=== PATIENT | male | born 1970 | race Two or more races ===

== ENCOUNTER 2022-10-04 21:36 | Observation (INO) | payer OTHER ==
[2022-10-04 23:12] LABS: PH,URINE 7.5 (5.0-8.0); URINE APPEARANCE CLOUDY; URINE BILIRUBIN NEGATIVE (NEGATIVE); URINE COLOR YELLOW; URINE GLUCOSE (UA) NEGATIVE (NEGATIVE); URINE KETONE NEGATIVE (NEGATIVE); URINE LEUK ESTERASE NEGATIVE (NEGATIVE); URINE NITRITE NEGATIVE (NEGATIVE); URINE PROTEIN NEGATIVE (NEGATIVE); URINE UROBILINOGEN 0.2 mg/dL (0.2-1.0)
[2022-10-04 23:13] LABS: HEMATOCRIT 33.6 % (35.4-49); HEMOGLOBIN 10.9 GM/dL (11.7-16.9); MCH 25.6 pg (25.7-33.7); MCHC 32.5 g/dl (32.0-35.9); MEAN CELL VOLUME 78.7 fl (80-96); MEAN PLT VOLUME 6.8 fl (7.5-11.1); PLATELET COUNT 206 10^3/uL (134-434); RBC 4.28 M/mm3 (4.00-5.60); RDW 16.4 % (11.9-15.9); WHITE BLOOD COUNT 5.5 K/mm3 (4.0-10.0)
[2022-10-04 23:31] LABS: CHLORIDE 114 mmol/L (98-107); POTASSIUM 4.5 mmol/L (3.5-5.1); SODIUM 144 mmol/L (136-145)
[2022-10-04 23:33] LABS: CALCIUM 8.5 mg/dL (8.5-10.1)
[2022-10-04 23:34] LABS: ALBUMIN 3.1 g/dl (3.4-5.0); ANION GAP 7 MMOL/L (8-16); BLOOD UREA NITROGEN 25.5 mg/dL (7-18); CO2 23 mmol/L (21-32); GLUCOSE,RANDOM 107 mg/dL (74-106)
[2022-10-04 23:37] LABS: CREATININE 0.8 mg/dL (0.55-1.3); SGOT/AST 25 U/L (15-37); SGPT/ALT 48 U/L (13-61)
[2022-10-04 23:38] LABS: BILIRUBIN,TOTAL 0.1 mg/dL (0.2-1)
[2022-10-04 23:39] LABS: TOT PROT 6.4 g/dl (6.4-8.2)
[2022-10-04 23:40] LABS: ALK PHOS 55 U/L (45-117); PHENCYCLIDINE,URINE NEGATIVE (NEGATIVE); URINE BARBITURATES NEGATIVE (NEGATIVE)
[2022-10-04 23:41] LABS: COCAINE, UR NEGATIVE (NEGATIVE); METHADONE, UR NEGATIVE (NEGATIVE); OPIATES, URI NEGATIVE (NEGATIVE)
[2022-10-04 23:45] LABS: URINE AMPHETAMINES NEGATIVE (NEGATIVE); URINE BENZODIAZEPINES NEGATIVE (NEGATIVE)
[2022-10-05] MEDS ORDERED: levETIRAcetam 500 MG/5 ML INJECTION VIAL IVPB ONE ×2 (00:16→00:27)
[2022-10-05] MEDS ORDERED: SODIUM CHLORIDE 1,000 ML IV STA (03:07)
[2022-10-05] MEDS ORDERED: SODIUM CHLORIDE 1,000 ML IV SCH (03:15)
[2022-10-05] MEDS: INSULIN (NOVOLOG) ASPART 100 UNITS/ML 10ML VIAL SQ SCH ×4 (06:46→22:33)
[2022-10-05 07:55] LABS: BASO % 0.4 % (0-2.0); EOS % 2.2 % (0-4.5); HEMATOCRIT 33.8 % (35.4-49); HEMOGLOBIN 10.8 GM/dL (11.7-16.9); LYMPH % 24.7 % (8-40); MCH 25.7 pg (25.7-33.7); MCHC 32.1 g/dl (32.0-35.9); MEAN CELL VOLUME 80.1 fl (80-96); MEAN PLT VOLUME 7.5 fl (7.5-11.1); NEUT % 64.7 % (42.8-82.8); PLATELET COUNT 214 10^3/uL (134-434); RBC 4.21 M/mm3 (4.00-5.60); RDW 16.4 % (11.9-15.9); RETICULOCYTES 1.49 % (0.5-1.5); WHITE BLOOD COUNT 5.3 K/mm3 (4.0-10.0)
[2022-10-05 08:11] LABS: POTASSIUM 4.5 mmol/L (3.5-5.1)
[2022-10-05 08:13] LABS: ALBUMIN 3.2 g/dl (3.4-5.0); CALCIUM 8.4 mg/dL (8.5-10.1); MAGNESIUM 1.8 mg/dL (1.8-2.4)
[2022-10-05 08:16] LABS: BLOOD UREA NITROGEN 18.3 mg/dL (7-18); CREATININE 0.7 mg/dL (0.55-1.3)
[2022-10-05 08:17] LABS: PHOSPHOROUS 3.2 mg/dL (2.5-4.9)
[2022-10-05 08:18] LABS: BILIRUBIN,TOTAL 0.2 mg/dL (0.2-1); TOT PROT 6.4 g/dl (6.4-8.2)
[2022-10-05] MEDS: ASPIRIN COATED 81 MG TABLET.EC PO SCH (09:44)
[2022-10-05] MEDS: ESCITALOPRAM OXALATE 20 MG TABLET PO SCH (09:45)
[2022-10-05] MEDS: DARUNAVIR/COB/EMTRI/TENOF (SYMTUZA) TABLET (NF) PO SCH (09:46)
[2022-10-05] MEDS: ENOXAPARIN NA (PORCINE) 40 MG/0.4 ML DISP.SYRIN SQ SCH ×2 (09:46→09:54)
[2022-10-05] MEDS ORDERED: levETIRAcetam 500 MG/5 ML INJECTION VIAL IVPB SCH (10:00)
[2022-10-05] MEDS ORDERED: PNEUMOC 20-VAL CONJ-DIP CRM/PF 0.5 ML SYRINGE IM ONE (10:00)
[2022-10-05] MEDS: D5-1/2NS+10 MEQ KCL - 10 MEQ/1,000 ML INFUS.BAG IV SCH ×2 (11:30→23:19)
[2022-10-05] MEDS: levETIRAcetam 500 MG TABLET (FP) PO SCH (22:32)
[2022-10-06 06:38] VITALS: RESP 18
[2022-10-06] MEDS: INSULIN (NOVOLOG) ASPART 100 UNITS/ML 10ML VIAL SQ SCH ×2 (07:53→11:18)
[2022-10-06 09:09] LABS: BASO % 0.5 % (0-2.0); EOS % 2.5 % (0-4.5); HEMATOCRIT 35.5 % (35.4-49); HEMOGLOBIN 11.3 GM/dL (11.7-16.9); LYMPH % 28.7 % (8-40); MCH 25.5 pg (25.7-33.7); MCHC 31.9 g/dl (32.0-35.9); MEAN CELL VOLUME 79.9 fl (80-96); MEAN PLT VOLUME 7.7 fl (7.5-11.1); MONO % 10.2 % (3.8-10.2); NEUT % 58.1 % (42.8-82.8); PLATELET COUNT 213 10^3/uL (134-434); RBC 4.44 M/mm3 (4.00-5.60); RDW 16.3 % (11.9-15.9); WHITE BLOOD COUNT 4.1 K/mm3 (4.0-10.0)
[2022-10-06 09:21] LABS: POTASSIUM 4.2 mmol/L (3.5-5.1)
[2022-10-06 09:24] LABS: ALBUMIN 3.3 g/dl (3.4-5.0); CALCIUM 8.8 mg/dL (8.5-10.1)
[2022-10-06 09:25] LABS: BLOOD UREA NITROGEN 17.3 mg/dL (7-18)
[2022-10-06 09:27] LABS: CREATININE 0.8 mg/dL (0.55-1.3)
[2022-10-06 09:29] LABS: BILIRUBIN,TOTAL 0.3 mg/dL (0.2-1); TOT PROT 6.8 g/dl (6.4-8.2)
[2022-10-06] MEDS: D5-1/2NS+10 MEQ KCL - 10 MEQ/1,000 ML INFUS.BAG IV SCH (09:46)
[2022-10-06] MEDS: ASPIRIN COATED 81 MG TABLET.EC PO SCH (09:49)
[2022-10-06] MEDS: ESCITALOPRAM OXALATE 20 MG TABLET PO SCH (09:49)
[2022-10-06] MEDS: levETIRAcetam 500 MG TABLET (FP) PO SCH (09:50)
[2022-10-06] MEDS: ENOXAPARIN NA (PORCINE) 40 MG/0.4 ML DISP.SYRIN SQ SCH (09:51)
[2022-10-06] MEDS: DARUNAVIR/COB/EMTRI/TENOF (SYMTUZA) TABLET (NF) PO SCH (09:51)
[2022-10-06 11:58] VITALS: TEMP 98.8
[2022-10-06 14:20] VITALS: BP 108/66; PULSE 82
== END 2022-10-06 15:00 | disposition other institution (70) ==
LOC: JER 21:36 → INTOOBSV 10-05 02:22 → JERBED 10-05 02:22 → J7W 10-05 03:45
PROVIDERS: ADMIT Internal Medicine; ATTEND Internal Medicine
PROC: 3E033GC Introduction of Other Therapeutic Substance into Peripheral Vein, Percutaneous Approach (ICD-10-PCS; principal; 2022-10-05)
PROC: 3E0337Z Introduction of Electrolytic and Water Balance Substance into Peripheral Vein, Percutaneous Approach (ICD-10-PCS; 2022-10-05)
DX: R56.9 Unspecified convulsions (principal); Z91.199 Patient's noncompliance with other medical treatment and regimen due to unspecified reason; Z88.0 Allergy status to penicillin; Z88.2 Allergy status to sulfonamides; Z88.8 Allergy status to other drugs, medicaments and biological substances; B20 Human immunodeficiency virus [HIV] disease; J44.9 Chronic obstructive pulmonary disease, unspecified; I11.0 Hypertensive heart disease with heart failure; I50.9 Heart failure, unspecified; F41.8 Other specified anxiety disorders; F20.9 Schizophrenia, unspecified; F14.90 Cocaine use, unspecified, uncomplicated; K27.9 Peptic ulcer, site unspecified, unspecified as acute or chronic, without hemorrhage or perforation; F43.10 Post-traumatic stress disorder, unspecified; F17.200 Nicotine dependence, unspecified, uncomplicated
CPT/HCPCS: 36415; 70450-TC; 70552-TC; 71045-TC-FY; 72125-TC; 72131-TC; 80053; 80177; 80307; 81003; 82550; 82728; 82962; 83036; 83540; 83550; 83605; 83735; 84100; 84146; 84439; 84443; 84466; 85025; 85027; 85045; 86359; 86360; 87040; 87536; 93005; 93010; 96361; 96374; 96376; 97116-GP; 97161-GP; 99285-25; A9579; G0378

== ENCOUNTER 2022-10-06 15:25 | Inpatient (IN) | payer OTHER ==
[2022-10-06 17:23] VITALS: BMI 16.9
[2022-10-06] MEDS ORDERED: POLYETHYLENE GLYCOL (HEALTHYLAX) 3350 17 GM PACKET PO PRN (19:33)
[2022-10-06] MEDS ORDERED: MAG HYDROX/AL HYDROX/SIMETH 30 ML UNIT-DOSE CUP PO PRN (19:33)
[2022-10-06] MEDS ORDERED: COLLOIDAL OATMEAL 1 BAR EACH TP PRN (19:33)
[2022-10-06] MEDS ORDERED: P-EPHED 60MG/TRIPROLIDI 2.5MG TABLET PO PRN (19:33)
[2022-10-06] MEDS ORDERED: BENZONATATE 200 MG CAPSULE PO PRN (19:33)
[2022-10-06] MEDS ORDERED: BENZOCAINE/MENTHOL (CHLORASEPTIC ) LOZENGE MM PRN (19:33)
[2022-10-06] MEDS ORDERED: AMMONIUM LACTATE 12% LOTION 225 GM BOTTLE TP PRN (19:33)
[2022-10-06] MEDS ORDERED: ACETAMINOPHEN 325 MG TABLET (FP) PO PRN (19:33)
[2022-10-06] MEDS ORDERED: LOPERAMIDE HCL 2 MG CAPSULE PO PRN (19:33)
[2022-10-06] MEDS ORDERED: MAGNESIUM HYDROX 2400MG/30ML ORAL SUSPENSION 30 ML CUP PO PRN (19:33)
[2022-10-06] MEDS ORDERED: guaiFENesin 600 MG TABLET.ER (FP) PO PRN (19:33)
[2022-10-06] MEDS ORDERED: ALBUTEROL SO4 HFA INHALER IH PRN (19:37)
[2022-10-06] MEDS: THIAMINE HCL 100 MG TABLET (FP) PO SCH (21:39)
[2022-10-06] MEDS: ATORVASTATIN CA 40 MG TABLET (FP) PO SCH (21:39)
[2022-10-06] MEDS: levETIRAcetam 500 MG TABLET (FP) PO SCH (21:39)
[2022-10-06] MEDS: MELATONIN 5 MG TABLETS PO SCH (21:39)
[2022-10-06] MEDS: INSULIN SLIDING SCALE (NOVOLOG) 1 VIAL SQ SCH (21:48)
[2022-10-06] MEDS: BACITRACIN ZINC 15 GM TUBE TOPICAL OINTMENT TP SCH (21:50)
[2022-10-06] MEDS ORDERED: PATIENT'S OWN MEDICATION (NON-FORMULARY) (Benzonatate [Benzonatate] 100 MG Capsule) PO SCH (22:00)
[2022-10-07 06:33] VITALS: RESP 20; TEMP 97.8
[2022-10-07] MEDS: INSULIN SLIDING SCALE (NOVOLOG) 1 VIAL SQ SCH ×4 (06:56→22:14)
[2022-10-07] MEDS: ASPIRIN COATED 81 MG TABLET.EC PO SCH (09:30)
[2022-10-07] MEDS: PRENATAL VITAMINS W/ FOLIC ACID TABLET (FP) PO SCH (09:30)
[2022-10-07] MEDS: NICOTINE 7 MG/24 HOURS TOPICAL PATCH TD SCH (09:30)
[2022-10-07] MEDS: levETIRAcetam 500 MG TABLET (FP) PO SCH ×2 (09:30→22:14)
[2022-10-07] MEDS: FOLIC ACID 1 MG TABLET (FP) PO SCH (09:30)
[2022-10-07] MEDS: ESCITALOPRAM OXALATE 20 MG TABLET PO SCH (09:30)
[2022-10-07] MEDS: BACITRACIN ZINC 15 GM TUBE TOPICAL OINTMENT TP SCH (09:33)
[2022-10-07] MEDS: DARUNAVIR/COB/EMTRI/TENOF (SYMTUZA) TABLET (NF) PO SCH (11:53)
[2022-10-07 14:29] VITALS: BP 109/59; PULSE 82
[2022-10-07] MEDS ORDERED: QUEtiapine FUMARATE 25 MG TABLET PO PRN (22:00)
[2022-10-07] MEDS: MELATONIN 5 MG TABLETS PO SCH (22:14)
[2022-10-07] MEDS: ATORVASTATIN CA 40 MG TABLET (FP) PO SCH (22:14)
[2022-10-07] MEDS: THIAMINE HCL 100 MG TABLET (FP) PO SCH (22:15)
[2022-10-08] MEDS: BACITRACIN ZINC 15 GM TUBE TOPICAL OINTMENT TP SCH (09:46)
[2022-10-08] MEDS: ASPIRIN COATED 81 MG TABLET.EC PO SCH (09:46)
[2022-10-08] MEDS: FOLIC ACID 1 MG TABLET (FP) PO SCH (09:47)
[2022-10-08] MEDS: ESCITALOPRAM OXALATE 20 MG TABLET PO SCH (09:47)
[2022-10-08] MEDS: PRENATAL VITAMINS W/ FOLIC ACID TABLET (FP) PO SCH (09:47)
[2022-10-08] MEDS: levETIRAcetam 500 MG TABLET (FP) PO SCH (09:47)
[2022-10-08] MEDS: NICOTINE 7 MG/24 HOURS TOPICAL PATCH TD SCH (09:47)
[2022-10-08] MEDS: DARUNAVIR/COB/EMTRI/TENOF (SYMTUZA) TABLET (NF) PO SCH (09:47)
== END 2022-10-08 10:12 | disposition short-term general hospital (02) | DRG 772 ==
LOC: YASAS 15:25 → Y5N 19:57
PROVIDERS: ADMIT Allergy & Immunology; ATTEND Psychiatry & Neurology Pain Medicine
PROC: HZ42ZZZ Group Counseling for Substance Abuse Treatment, Cognitive-Behavioral (ICD-10-PCS; principal; 2022-10-06)
DX: F14.20 Cocaine dependence, uncomplicated (principal); F12.20 Cannabis dependence, uncomplicated; F17.210 Nicotine dependence, cigarettes, uncomplicated; F20.0 Paranoid schizophrenia; G40.909 Epilepsy, unspecified, not intractable, without status epilepticus; Z21 Asymptomatic human immunodeficiency virus [HIV] infection status; I25.10 Atherosclerotic heart disease of native coronary artery without angina pectoris; I10 Essential (primary) hypertension; I25.2 Old myocardial infarction; Z95.5 Presence of coronary angioplasty implant and graft; Z86.73 Personal history of transient ischemic attack (TIA), and cerebral infarction without residual deficits; Z87.11 Personal history of peptic ulcer disease; Z88.0 Allergy status to penicillin; Z88.2 Allergy status to sulfonamides; Z88.8 Allergy status to other drugs, medicaments and biological substances
CPT/HCPCS: 82962; 87635

== ENCOUNTER 2022-10-07 21:54 | Observation (INO) | payer OTHER ==
[2022-10-07 22:01] VITALS: BMI 16.9
[2022-10-07] MEDS ORDERED: levETIRAcetam 500 MG/5 ML INJECTION VIAL IVPB ONE (23:29)
[2022-10-08] MEDS ORDERED: levETIRAcetam 500 MG/5 ML INJECTION VIAL IVPB ONE (00:17)
[2022-10-08 00:22] LABS: BASO % 0.5 % (0-2.0); EOS % 2.2 % (0-4.5); HEMATOCRIT 36.8 % (35.4-49); HEMOGLOBIN 11.9 GM/dL (11.7-16.9); LYMPH % 27.7 % (8-40); MCH 25.6 pg (25.7-33.7); MCHC 32.4 g/dl (32.0-35.9); MEAN PLT VOLUME 6.7 fl (7.5-11.1); MONO % 9.9 % (3.8-10.2); NEUT % 59.7 % (42.8-82.8); PLATELET COUNT 236 10^3/uL (134-434); RBC 4.66 M/mm3 (4.00-5.60); WHITE BLOOD COUNT 5.1 K/mm3 (4.0-10.0)
[2022-10-08 00:36] LABS: INR 0.96 (0.83-1.09); PROTHROMBIN TIME (PATIENT) 11.1 SEC (9.7-13.0)
[2022-10-08 00:39] LABS: ACTIVATED PTT 29.6 SECONDS (25.2-36.5)
[2022-10-08 00:54] LABS: CHLORIDE 108 mmol/L (98-107); POTASSIUM 4.6 mmol/L (3.5-5.1); SODIUM 142 mmol/L (136-145)
[2022-10-08 00:56] LABS: CALCIUM 9.4 mg/dL (8.5-10.1)
[2022-10-08 00:57] LABS: ALBUMIN 3.7 g/dl (3.4-5.0); ANION GAP 6 MMOL/L (8-16); BLOOD UREA NITROGEN 23.9 mg/dL (7-18); CO2 28 mmol/L (21-32); GLUCOSE,RANDOM 93 mg/dL (74-106); MAGNESIUM 1.9 mg/dL (1.8-2.4)
[2022-10-08 00:59] LABS: SGPT/ALT 47 U/L (13-61)
[2022-10-08 01:00] LABS: CREATININE 0.9 mg/dL (0.55-1.3); SGOT/AST 21 U/L (15-37)
[2022-10-08 01:01] LABS: BILIRUBIN,TOTAL 0.2 mg/dL (0.2-1); TOT PROT 7.6 g/dl (6.4-8.2)
[2022-10-08 01:03] LABS: ALK PHOS 59 U/L (45-117)
[2022-10-08 03:37] LABS: URINE APPEARANCE CLEAR; URINE BILIRUBIN NEGATIVE (NEGATIVE); URINE COLOR YELLOW; URINE GLUCOSE (UA) NEGATIVE (NEGATIVE); URINE KETONE NEGATIVE (NEGATIVE); URINE LEUK ESTERASE NEGATIVE (NEGATIVE); URINE NITRITE NEGATIVE (NEGATIVE); URINE PROTEIN NEGATIVE (NEGATIVE); URINE UROBILINOGEN 0.2 mg/dL (0.2-1.0)
[2022-10-08] MEDS ORDERED: PALIPERIDONE PALMITATE 234 MG/1.5 ML IM SCH (07:45)
[2022-10-08] MEDS ORDERED: ENOXAPARIN NA (PORCINE) 40 MG/0.4 ML DISP.SYRIN SQ ONE (07:57)
[2022-10-08] MEDS ORDERED: NALOXONE HCL 0.4 MG/ML VIAL IVPUSH ONE (08:17)
[2022-10-08] MEDS: ENOXAPARIN NA (PORCINE) 40 MG/0.4 ML DISP.SYRIN SQ SCH ×2 (08:23→10:09)
[2022-10-08] MEDS ORDERED: PATIENT'S OWN MEDICATION (NON-FORMULARY) (Darunavir/Cob/Emtri/Tenof Alaf 1 EACH Tablet) PO SCH (10:00)
[2022-10-08] MEDS ORDERED: LACTATED RINGERS SOLUTION 1,000 ML/1,000 ML INFUS.BAG IV SCH (10:00)
[2022-10-08] MEDS ORDERED: ALBUTEROL SO4 HFA INHALER IH PRN (12:00)
[2022-10-08] MEDS: THIAMINE HCL 100 MG TABLET (FP) PO SCH (13:36)
[2022-10-08] MEDS: FOLIC ACID 1 MG TABLET (FP) PO SCH (13:36)
[2022-10-08] MEDS: ASPIRIN COATED 81 MG TABLET.EC PO SCH (13:37)
[2022-10-08] MEDS: MULTIVITAMINS (DAILY MVI) TABLET (FP) PO SCH (13:37)
[2022-10-08] MEDS: DARUNAVIR/COB/EMTRI/TENOF (SYMTUZA) TABLET (NF) PO SCH (13:37)
[2022-10-08] MEDS: ESCITALOPRAM OXALATE 20 MG TABLET PO SCH (13:37)
[2022-10-08 14:04] LABS: METHADONE, UR NEGATIVE (NEGATIVE); PHENCYCLIDINE,URINE NEGATIVE (NEGATIVE)
[2022-10-08 14:05] LABS: COCAINE, UR NEGATIVE (NEGATIVE)
[2022-10-08 14:06] LABS: URINE BARBITURATES NEGATIVE (NEGATIVE)
[2022-10-08 14:10] LABS: OPIATES, URI NEGATIVE (NEGATIVE); URINE AMPHETAMINES NEGATIVE (NEGATIVE); URINE BENZODIAZEPINES NEGATIVE (NEGATIVE)
[2022-10-08] MEDS: ATORVASTATIN CA 40 MG TABLET (FP) PO SCH (21:40)
[2022-10-08] MEDS ORDERED: GABAPENTIN 400 MG CAPSULE PO SCH (22:00)
[2022-10-09 09:26] LABS: HEMOGLOBIN 12.2 GM/dL (11.7-16.9); MCH 25.9 pg (25.7-33.7); MCHC 32.9 g/dl (32.0-35.9); MEAN CELL VOLUME 78.7 fl (80-96); PLATELET COUNT 225 10^3/uL (134-434); WHITE BLOOD COUNT 4.5 K/mm3 (4.0-10.0)
[2022-10-09 09:51] LABS: POTASSIUM 4.5 mmol/L (3.5-5.1)
[2022-10-09 10:00] LABS: BLOOD UREA NITROGEN 24.9 mg/dL (7-18); CALCIUM 8.7 mg/dL (8.5-10.1)
[2022-10-09 10:03] LABS: CREATININE 0.8 mg/dL (0.55-1.3)
[2022-10-09] MEDS: FOLIC ACID 1 MG TABLET (FP) PO SCH (10:16)
[2022-10-09] MEDS: MULTIVITAMINS (DAILY MVI) TABLET (FP) PO SCH (10:16)
[2022-10-09] MEDS: ESCITALOPRAM OXALATE 20 MG TABLET PO SCH (10:16)
[2022-10-09] MEDS: ASPIRIN COATED 81 MG TABLET.EC PO SCH (10:16)
[2022-10-09] MEDS: THIAMINE HCL 100 MG TABLET (FP) PO SCH (10:17)
[2022-10-09] MEDS: DARUNAVIR/COB/EMTRI/TENOF (SYMTUZA) TABLET (NF) PO SCH (10:17)
[2022-10-09] MEDS: ENOXAPARIN NA (PORCINE) 40 MG/0.4 ML DISP.SYRIN SQ SCH (10:22)
[2022-10-09] MEDS: levETIRAcetam 500 MG TABLET (FP) PO SCH ×2 (13:02→21:38)
[2022-10-09] MEDS: SENNOSIDES 8.6MG TABLET (FP) PO SCH ×2 (13:02→21:39)
[2022-10-09] MEDS: ATORVASTATIN CA 40 MG TABLET (FP) PO SCH (21:38)
[2022-10-10] MEDS: ESCITALOPRAM OXALATE 20 MG TABLET PO SCH (09:49)
[2022-10-10] MEDS: THIAMINE HCL 100 MG TABLET (FP) PO SCH (09:49)
[2022-10-10] MEDS: MULTIVITAMINS (DAILY MVI) TABLET (FP) PO SCH (09:49)
[2022-10-10] MEDS: levETIRAcetam 500 MG TABLET (FP) PO SCH ×2 (09:49→22:46)
[2022-10-10] MEDS: DARUNAVIR/COB/EMTRI/TENOF (SYMTUZA) TABLET (NF) PO SCH (09:50)
[2022-10-10] MEDS: FOLIC ACID 1 MG TABLET (FP) PO SCH (09:50)
[2022-10-10] MEDS: ASPIRIN COATED 81 MG TABLET.EC PO SCH (09:50)
[2022-10-10] MEDS: SENNOSIDES 8.6MG TABLET (FP) PO SCH ×2 (09:53→22:46)
[2022-10-10] MEDS: ENOXAPARIN NA (PORCINE) 40 MG/0.4 ML DISP.SYRIN SQ SCH (09:54)
[2022-10-10] MEDS: ACETAMINOPHEN 325 MG TABLET (FP) PO PRN (18:15)
[2022-10-10] MEDS: ATORVASTATIN CA 40 MG TABLET (FP) PO SCH (22:45)
[2022-10-11] MEDS: ACETAMINOPHEN 325 MG TABLET (FP) PO PRN ×2 (06:37→12:11)
[2022-10-11] MEDS: ASPIRIN COATED 81 MG TABLET.EC PO SCH (10:01)
[2022-10-11] MEDS: DARUNAVIR/COB/EMTRI/TENOF (SYMTUZA) TABLET (NF) PO SCH (10:01)
[2022-10-11] MEDS: FOLIC ACID 1 MG TABLET (FP) PO SCH (10:01)
[2022-10-11] MEDS: THIAMINE HCL 100 MG TABLET (FP) PO SCH (10:01)
[2022-10-11] MEDS: SENNOSIDES 8.6MG TABLET (FP) PO SCH ×2 (10:01→21:41)
[2022-10-11] MEDS: ENOXAPARIN NA (PORCINE) 40 MG/0.4 ML DISP.SYRIN SQ SCH (10:01)
[2022-10-11] MEDS: ESCITALOPRAM OXALATE 20 MG TABLET PO SCH (10:01)
[2022-10-11] MEDS: levETIRAcetam 500 MG TABLET (FP) PO SCH ×2 (10:01→21:40)
[2022-10-11] MEDS: MULTIVITAMINS (DAILY MVI) TABLET (FP) PO SCH (10:01)
[2022-10-11] MEDS ORDERED: FLUTICASONE PROP 0.05% 16 GM NASAL SPRAY NS SCH (15:15)
[2022-10-11] MEDS: SODIUM CHLORIDE NASAL SPRAY 44 ML BOTTLE NS SCH (15:44)
[2022-10-11] MEDS: ATORVASTATIN CA 40 MG TABLET (FP) PO SCH (21:41)
[2022-10-12] MEDS ORDERED: ESCITALOPRAM OXALATE 10 MG TABLET ONE (10:46)
[2022-10-12] MEDS: ENOXAPARIN NA (PORCINE) 40 MG/0.4 ML DISP.SYRIN SQ SCH (10:52)
[2022-10-12] MEDS: THIAMINE HCL 100 MG TABLET (FP) PO SCH (10:53)
[2022-10-12] MEDS: ESCITALOPRAM OXALATE 20 MG TABLET PO SCH (10:53)
[2022-10-12] MEDS: SENNOSIDES 8.6MG TABLET (FP) PO SCH ×2 (10:53→22:31)
[2022-10-12] MEDS: FOLIC ACID 1 MG TABLET (FP) PO SCH (10:53)
[2022-10-12] MEDS: ASPIRIN COATED 81 MG TABLET.EC PO SCH (10:53)
[2022-10-12] MEDS: DARUNAVIR/COB/EMTRI/TENOF (SYMTUZA) TABLET (NF) PO SCH (10:54)
[2022-10-12] MEDS: levETIRAcetam 500 MG TABLET (FP) PO SCH ×2 (10:54→22:32)
[2022-10-12] MEDS: MULTIVITAMINS (DAILY MVI) TABLET (FP) PO SCH (10:54)
[2022-10-12] MEDS: SODIUM CHLORIDE NASAL SPRAY 44 ML BOTTLE NS SCH (15:20)
[2022-10-12 21:04] VITALS: RESP 18
[2022-10-12] MEDS: ATORVASTATIN CA 40 MG TABLET (FP) PO SCH (22:32)
[2022-10-13 10:16] LABS: BASO % 0.6 % (0-2.0); EOS % 2.9 % (0-4.5); HEMATOCRIT 37.5 % (35.4-49); HEMOGLOBIN 12.1 GM/dL (11.7-16.9); LYMPH % 26.6 % (8-40); MCHC 32.4 g/dl (32.0-35.9); MEAN CELL VOLUME 80.3 fl (80-96); MEAN PLT VOLUME 7.6 fl (7.5-11.1); MONO % 9.5 % (3.8-10.2); NEUT % 60.4 % (42.8-82.8); PLATELET COUNT 223 10^3/uL (134-434); RBC 4.67 M/mm3 (4.00-5.60); RDW 17.3 % (11.9-15.9); WHITE BLOOD COUNT 4.4 K/mm3 (4.0-10.0)
[2022-10-13 10:19] LABS: POTASSIUM 3.9 mmol/L (3.5-5.1)
[2022-10-13 10:20] LABS: CALCIUM 8.7 mg/dL (8.5-10.1)
[2022-10-13 10:21] LABS: ALBUMIN 3.4 g/dl (3.4-5.0); BLOOD UREA NITROGEN 20.8 mg/dL (7-18)
[2022-10-13 10:24] LABS: CREATININE 0.9 mg/dL (0.55-1.3)
[2022-10-13 10:27] LABS: BILIRUBIN,TOTAL 0.3 mg/dL (0.2-1); TOT PROT 7.4 g/dl (6.4-8.2)
[2022-10-13] MEDS ORDERED: ESCITALOPRAM OXALATE 10 MG TABLET ONE (10:35)
[2022-10-13] MEDS: MULTIVITAMINS (DAILY MVI) TABLET (FP) PO SCH (10:46)
[2022-10-13] MEDS: ASPIRIN COATED 81 MG TABLET.EC PO SCH (10:46)
[2022-10-13] MEDS: SENNOSIDES 8.6MG TABLET (FP) PO SCH (10:46)
[2022-10-13] MEDS: levETIRAcetam 500 MG TABLET (FP) PO SCH (10:46)
[2022-10-13] MEDS: THIAMINE HCL 100 MG TABLET (FP) PO SCH (10:46)
[2022-10-13] MEDS: ENOXAPARIN NA (PORCINE) 40 MG/0.4 ML DISP.SYRIN SQ SCH (10:46)
[2022-10-13] MEDS: DARUNAVIR/COB/EMTRI/TENOF (SYMTUZA) TABLET (NF) PO SCH (10:47)
[2022-10-13] MEDS: FOLIC ACID 1 MG TABLET (FP) PO SCH (10:48)
[2022-10-13 10:54] VITALS: TEMP 98
[2022-10-13] MEDS ORDERED: ESCITALOPRAM OXALATE 10 MG TABLET PO SCH (11:52)
[2022-10-13] MEDS: SODIUM CHLORIDE NASAL SPRAY 44 ML BOTTLE NS SCH (11:53)
[2022-10-13] MEDS: ESCITALOPRAM OXALATE 20 MG TABLET PO SCH (12:03)
[2022-10-13 15:24] VITALS: BP 110/72; PULSE 76
== END 2022-10-13 19:00 | disposition home or self-care (01) ==
LOC: JERFT 21:54 → JERBED 10-08 05:41 → UNDOADMOB 10-08 05:41 → INTOOBSV 10-08 05:41 → JERBED 10-08 09:04 → J5S 10-08 09:04 → JERBED 10-09 12:03 → J8W 10-11 18:56
PROC: 3E023GC Introduction of Other Therapeutic Substance into Muscle, Percutaneous Approach (ICD-10-PCS; principal; 2022-10-09)
PROC: 3E0337Z Introduction of Electrolytic and Water Balance Substance into Peripheral Vein, Percutaneous Approach (ICD-10-PCS; 2022-10-09)
PROC: 3E033GC Introduction of Other Therapeutic Substance into Peripheral Vein, Percutaneous Approach (ICD-10-PCS; 2022-10-09)
DX: G92.8 Other toxic encephalopathy (principal); I69.354 Hemiplegia and hemiparesis following cerebral infarction affecting left non-dominant side; F14.10 Cocaine abuse, uncomplicated; F41.8 Other specified anxiety disorders; G40.909 Epilepsy, unspecified, not intractable, without status epilepticus; F43.10 Post-traumatic stress disorder, unspecified; B20 Human immunodeficiency virus [HIV] disease; I25.10 Atherosclerotic heart disease of native coronary artery without angina pectoris; J44.9 Chronic obstructive pulmonary disease, unspecified; U07.1 COVID-19; I25.2 Old myocardial infarction; Z95.5 Presence of coronary angioplasty implant and graft; Z29.8 Encounter for other specified prophylactic measures; I10 Essential (primary) hypertension; F99 Mental disorder, not otherwise specified; Z88.0 Allergy status to penicillin; Z88.8 Allergy status to other drugs, medicaments and biological substances
CPT/HCPCS: 36415; 70450-TC; 71045-TC-FY; 80048; 80053; 80177; 80307; 81003; 82140; 82533; 82962; 83605; 83735; 84439; 84443; 84484; 85025; 85027; 85610; 85730; 86850; 86900; 86901; 87086; 87186; 87635; 93005; 93010; 93306-TC; 94761; 96361; 96372; 96374; 97116-GP; 97162-GP; 99285-25; G0378